=== PATIENT | female | born 1945 | race Caucasian/White ===

== ENCOUNTER 2017-01-09 11:53 | Outpatient (CLI) | payer OTHER, MEDICAID | END 2017-01-09 18:39 | disposition home or self-care (01) | LOC: SMA 11:53 | PROVIDERS: ATTEND Family Medicine | DX: Z12.31 Encounter for screening mammogram for malignant neoplasm of breast (principal) | CPT/HCPCS: G0202 ==

== ENCOUNTER 2017-10-02 14:00 | Outpatient (CLI) | payer OTHER, MEDICAID ==
[~2017-10-02] VITALS: Ht 157.5 cm; Wt 78.0 kg
== END 2017-10-02 14:19 | disposition home or self-care (01) ==
LOC: SLB 14:00 → EDSTATUS 10-08 09:30
PROVIDERS: ATTEND Orthopaedic Surgery
DX: Z96.651 Presence of right artificial knee joint (principal)
CPT/HCPCS: 87081

== ENCOUNTER 2018-01-16 13:05 | Outpatient (CLI) | payer OTHER, MEDICAID ==
[~2018-01-16 13:05] MED LIST: AMIT10TA6; CANA100T PO; FLUT16SP16 NS; LOSA50TA3 PO; METF-510 PO; PIOG45TA15 PO; PRO40 PO; SIMV20TA2 PO
== END 2018-01-16 20:38 | disposition home or self-care (01) ==
LOC: SMA 13:05
PROVIDERS: ATTEND Family Medicine
DX: Z12.31 Encounter for screening mammogram for malignant neoplasm of breast (principal)
CPT/HCPCS: 77067

== ENCOUNTER 2019-01-19 12:43 | Outpatient (CLI) | payer OTHER, MEDICAID ==
[~2019-01-19 12:43] MED LIST changes: -PIOG45TA15 PO; +PIOG45TA63 PO
== END 2019-01-20 13:44 | disposition home or self-care (01) ==
LOC: SMA 12:43
PROVIDERS: ATTEND Family Medicine
DX: Z12.31 Encounter for screening mammogram for malignant neoplasm of breast (principal)
CPT/HCPCS: 77067